=== PATIENT | male | born 1955 | race Two or more races ===

== ENCOUNTER 2018-01-23 15:26 | Emergency (ER) | payer OTHER ==
[~2018-01-23] VITALS: Ht 177.8 cm; Wt 75.3 kg
== END 2018-01-23 18:12 | disposition home or self-care (01) ==
LOC: ER 15:26
DX: R42 Dizziness and giddiness (principal)

== ENCOUNTER → 2018-01-24 | Outpatient (CLI) | payer OTHER | END | disposition home or self-care (01) | LOC: MRI 14:41 | DX: R42 Dizziness and giddiness (principal) | CPT/HCPCS: 70551 ==

== ENCOUNTER 2018-01-26 14:55 | Outpatient (CLI) | payer OTHER | END 2018-01-26 15:10 | disposition home or self-care (01) | LOC: RAD 14:55 | DX: M81.6 Localized osteoporosis [Lequesne] (principal); C90.00 Multiple myeloma not having achieved remission ==

== ENCOUNTER 2018-01-27 09:41 | Outpatient (CLI) | payer OTHER | END 2018-01-27 10:56 | disposition home or self-care (01) | LOC: LAB 09:41 | DX: C90.00 Multiple myeloma not having achieved remission (principal); D47.2 Monoclonal gammopathy; M81.0 Age-related osteoporosis without current pathological fracture; E21.2 Other hyperparathyroidism ==

== ENCOUNTER → 2018-02-02 | Outpatient (CLI) | payer OTHER | END | disposition home or self-care (01) | LOC: NUCLEAR 10:00 | DX: M81.0 Age-related osteoporosis without current pathological fracture (principal); M81.6 Localized osteoporosis [Lequesne] ==

== ENCOUNTER → 2018-08-29 09:30 | Outpatient (CLI) | payer OTHER | END | disposition home or self-care (01) | LOC: LAB 09:30 | DX: R00.2 Palpitations (principal) ==

== ENCOUNTER 2018-10-18 08:34 | Outpatient (CLI) | payer OTHER | END 2018-10-18 08:50 | disposition home or self-care (01) | LOC: RX STUDY 08:34 | DX: R13.19 Other dysphagia (principal) ==

== ENCOUNTER 2018-11-22 15:48 | Emergency (ER) | payer OTHER ==
[~2018-11-22] VITALS: Ht 177.8 cm; Wt 75.7 kg
[2018-11-22] MEDS ORDERED: PEPCID20 MG (16:23)
[2018-11-22] MEDS ORDERED: PREVACID15 MG (16:24)
[2018-11-22] MEDS ORDERED: ZANTAC25 MG/1 ML (16:24)
== END 2018-11-22 17:51 | disposition home or self-care (01) ==
LOC: ER 15:48
DX: K21.0 Gastro-esophageal reflux disease with esophagitis (principal)

== ENCOUNTER 2019-11-12 09:35 | Outpatient (CLI) | payer OTHER ==
[~2019-11-12 09:35] MED LIST: PEPCID20 MG; PREVACID15 MG; ZANTAC25 MG/1 ML
== END 2019-11-12 09:52 | disposition home or self-care (01) ==
LOC: RAD 09:35
PROVIDERS: ATTEND Physical Medicine & Rehabilitation
DX: M25.511 Pain in right shoulder (principal)

== ENCOUNTER 2020-02-05 13:19 | Outpatient (CLI) | payer OTHER ==
[2020-02-21] MEDS ORDERED: DICLOFENAC POTA50 MG PO (10:45)
== END 2020-02-05 14:52 | disposition home or self-care (01) ==
LOC: MRI 13:19
PROVIDERS: ATTEND Anesthesiology
DX: M50.322 Other cervical disc degeneration at C5-C6 level (principal); M54.5 Low back pain
CPT/HCPCS: 72141; 72148

== ENCOUNTER 2020-02-21 11:34 | Outpatient (CLI) | payer OTHER ==
[~2020-02-21 11:34] MED LIST changes: +DICLOFENAC POTA50 MG PO
== END 2020-02-21 11:38 | disposition home or self-care (01) ==
LOC: LAB 11:34
PROVIDERS: ATTEND Physical Medicine & Rehabilitation
DX: Z20.828 Contact with and (suspected) exposure to other viral communicable diseases (principal); Z11.59 Encounter for screening for other viral diseases

== ENCOUNTER 2020-05-05 09:41 | Outpatient (CLI) | payer OTHER | END 2020-05-05 09:51 | disposition home or self-care (01) | LOC: LAB 09:41 | PROVIDERS: ATTEND Physical Medicine & Rehabilitation | DX: I10 Essential (primary) hypertension (principal); E78.00 Pure hypercholesterolemia, unspecified ==

== ENCOUNTER 2020-08-09 16:17 | Emergency (ER) | payer OTHER ==
[~2020-08-09] VITALS: Ht 177.8 cm; Wt 74.8 kg
[2020-08-09] MEDS ORDERED: DUI500 PO (17:45)
== END 2020-08-09 18:33 | disposition home or self-care (01) ==
LOC: ER 16:17
DX: H66.91 Otitis media, unspecified, right ear (principal)

== ENCOUNTER 2020-08-18 09:47 | Outpatient (CLI) | payer OTHER ==
[~2020-08-18 09:47] MED LIST changes: +DUI500 PO
== END 2020-08-18 09:48 | disposition home or self-care (01) ==
LOC: LAB 09:47
PROVIDERS: ATTEND Urology
DX: N40.1 Benign prostatic hyperplasia with lower urinary tract symptoms (principal)

== ENCOUNTER 2021-04-30 13:40 | Outpatient (CLI) | payer OTHER | END 2021-04-30 13:50 | disposition home or self-care (01) | LOC: TOM 13:40 | PROVIDERS: ATTEND Otolaryngology | DX: M26.69 Other specified disorders of temporomandibular joint (principal) ==

== ENCOUNTER 2021-12-21 09:39 | Outpatient (CLI) | payer OTHER | END 2021-12-21 09:40 | disposition home or self-care (01) | LOC: LAB 09:39 | PROVIDERS: ATTEND Ophthalmology | DX: R13.10 Dysphagia, unspecified (principal) ==

== ENCOUNTER → 2021-12-27 | Outpatient (CLI) | payer OTHER | END | disposition home or self-care (01) | LOC: MRI 09:37 | PROVIDERS: ATTEND Ophthalmology | DX: R13.10 Dysphagia, unspecified (principal) | CPT/HCPCS: 70543; 70553 ==

== ENCOUNTER 2022-06-17 13:44 | Emergency (ER) | payer OTHER ==
[~2022-06-17] VITALS: Ht 177.8 cm; Wt 74.8 kg
== END 2022-06-17 17:12 | disposition home or self-care (01) ==
LOC: ER 13:44
DX: S62.652A Nondisplaced fracture of middle phalanx of right middle finger, initial encounter for closed fracture (principal); X58.XXXA Exposure to other specified factors, initial encounter; Y93.89 Activity, other specified; Y92.89 Other specified places as the place of occurrence of the external cause; Y99.9 Unspecified external cause status; Z88.0 Allergy status to penicillin

== ENCOUNTER 2022-08-17 11:35 | Outpatient (CLI) | payer OTHER | END 2022-08-17 11:50 | disposition home or self-care (01) | LOC: RAD 11:35 | PROVIDERS: ATTEND Internal Medicine | DX: J40 Bronchitis, not specified as acute or chronic (principal); M54.59 Other low back pain; M50.80 Other cervical disc disorders, unspecified cervical region | CPT/HCPCS: 72141; 72148 ==

== ENCOUNTER 2023-03-23 11:43 | Outpatient (CLI) | payer OTHER | END 2023-03-23 11:46 | disposition home or self-care (01) | LOC: MRI 11:43 | DX: M75.82 Other shoulder lesions, left shoulder (principal) | CPT/HCPCS: 73218 ==

== ENCOUNTER → 2024-01-24 | Outpatient (CLI) | payer OTHER | END | disposition home or self-care (01) | LOC: MRI 11:01 | DX: M54.17 Radiculopathy, lumbosacral region (principal) | CPT/HCPCS: 72148 ==

== ENCOUNTER 2024-11-28 13:20 | Outpatient (CLI) | payer OTHER | END 2024-11-28 13:21 | disposition home or self-care (01) | LOC: SONOGRAMA 13:20 | DX: R22.1 Localized swelling, mass and lump, neck (principal); D49.2 Neoplasm of unspecified behavior of bone, soft tissue, and skin ==

== ENCOUNTER 2024-11-29 13:08 | Outpatient (CLI) | payer OTHER | END 2024-11-29 13:14 | disposition home or self-care (01) | LOC: MRI 13:08 | DX: M54.12 Radiculopathy, cervical region (principal); M47.892 Other spondylosis, cervical region | CPT/HCPCS: 72141 ==